=== PATIENT | female | born 1995 | race Caucasian/White ===

== ENCOUNTER → 2016-03-01 | Outpatient (CLI) | payer SELFPAY | LOC: MOB LAB 16:38 | PROVIDERS: ATTEND Family Medicine | DX: Z36 Encounter for antenatal screening of mother (principal); Z3A.37 37 weeks gestation of pregnancy | CPT/HCPCS: 87150 ==

== ENCOUNTER 2016-03-02 12:16 | Outpatient (CLI) | payer OTHER ==
[2016-03-02] MEDS ORDERED: NORMAL SALINE 10 ML SYRINGE FLUSH IVP PRN (12:31)
[2016-03-02 12:43] VITALS: RESP 18; TEMP 98.2
[2016-03-02 12:58] LABS: COCAINE SCREEN NEGATIVE (NEG); METHAMPHETAMINES SCREEN,URINE NEGATIVE (NEG); TRICYCLIC ANTIDEPRESSANT,URINE NEGATIVE (NEG); URINE SAMPLE TYPE VOIDED SPECIMEN; URINE SPECIFIC GRAVITY - MAN 1.018
[2016-03-02 12:59] LABS: CANNABINOID SCREEN,URINE POSITIVE (NEG)
--- NOTE | 2016-03-03 21:48 | PDOC(PROG) ---
Intake - - Reason for Visit/Chief Complaint: Other Additional Reason(s) for Visit: leaking of fluids Admitted From: Home - LMP: 06/05/15 Estimated Due Date: 03/22/16 Gestational Age in Weeks and Days: 37 Weeks and 2 Days : 3 Para: 0 Term Births: 1 Births: 0 Number of Abortions (Spont./Elective): 1 Living Children: 1 - Labs Blood Type and Rh: O+ Group B Strep: Unknown Hepatitis B Surface Antigen: Absent HIV: Negative Rubella Status: Immune VDRL/RPR: Absent Maternal - Vital Signs Last Taken Vital Signs: Vital Signs - Last Taken Temperature 98.2 F 03/02/16 12:45 Pulse Rate 99 03/02/16 12:45 Respiratory Rate 18 03/02/16 12:45 Blood Pressure 116/65 03/02/16 12:45 Pulse Ox 98 03/02/16 12:45 - Uterine Activity Uterine Contraction Monitor Mode: External Uterine Contraction Pattern: Absent - Vaginal Discharge Vaginal Bleeding Amount: None Vaginal Discharge Amount: Small Vaginal Discharge Description: Watery Monitoring - Uterine Activity Uterine Contraction Monitor Mode: External Uterine Contraction Pattern: Absent Results - Bedside Testing Bedside Urine Ketone: Large Bedside Urine Leukocytes Esterase: Moderate Bedside Urine Nitrite: Negative Bedside Urine Occult Blood: Negative Bedside Urine Protein: Negative Bedside Specific [place]: 1.015 Assessment and Plan - Patient Problems (1) Vaginal discharge Status: Acute
== END 2016-03-02 13:00 | disposition home or self-care (01) ==
LOC: OBOP 12:16
PROVIDERS: ATTEND Family Medicine
DX: O26.893 Other specified pregnancy related conditions, third trimester (principal); N89.8 Other specified noninflammatory disorders of vagina; O99.333 Smoking (tobacco) complicating pregnancy, third trimester; Z3A.37 37 weeks gestation of pregnancy
CPT/HCPCS: 81003; 82542; 84112; G0477

== ENCOUNTER → 2016-03-04 | Outpatient (CLI) | payer OTHER ==
--- NOTE | 2016-03-04 15:37 | DI ---
History: Third trimester . Evaluate for IUGR, oligohydramnios. Prior examination: Multiple prior. Most recent 02/12/16 Procedure: Study performed using a mid frequency transducer. Findings: There is no ultrasonographic evidence of oligohydramnios. CHANDAN is 11.4. Largest pocket left upper quadrant, 4.1 cm. heart rate is 132 beats per minute, synchronous. Placenta is attached along the fundal margin and posteriorly. Partial visualization shows no evidence of abruption. The [facility] and [place] are in fairly close agreement, varying between 36 weeks one week and 37 weeks 3 days with ultrasound dates at 36 weeks 4 days, 37 weeks 3 days by dates. EDC 03/22/16 by ultrasound. age parameters show good agreement femur length/abdominal circumference ratio of 23%, normal be tween 20 and 24%. The estimated weight is 2924 g, 31st percentile. Impression: Near-term at 36 weeks 4 days. No ultrasonographic evidence of intrauterine grow th retardation. The estimated weight indicates 31st percentile
== END ==
LOC: US 12:54
PROVIDERS: ATTEND Family Medicine
DX: O41.03X0 Oligohydramnios, third trimester, not applicable or unspecified (principal); O36.5930 Maternal care for other known or suspected poor fetal growth, third trimester, not applicable or unspecified; Z3A.37 37 weeks gestation of pregnancy
CPT/HCPCS: 76815

== ENCOUNTER 2016-03-15 05:30 | Inpatient (IN) | payer OTHER ==
[2016-03-15] MEDS ORDERED: NORMAL SALINE 10 ML SYRINGE FLUSH IVP PRN ×2 (05:43→06:52)
[2016-03-15] MEDS ORDERED: Metoclopramide Inj 10 MG/2 ML VIAL IV ONE (05:43)
[2016-03-15] MEDS ORDERED: Lactated Ringers 1,000 ML PRIMARY IV ONE (05:43)
[2016-03-15] MEDS ORDERED: LIDOCAINE W/ SODIUM BICARB 0.5 ML SYR SUBD PRN (05:43)
[2016-03-15] MEDS ORDERED: Famotidine Inj 20 MG in Normal Saline Flush 10 ML IVP ONE (05:43)
[2016-03-15] MEDS ORDERED: CITRIC ACID/SODIUM CITRATE 30 ML CUP PO ONE (05:43)
[2016-03-15] MEDS ORDERED: CefOXitin Inj 2 GM in Sodium Chloride 0.9% 100 ML IV ONE (05:43)
[2016-03-15] MEDS ORDERED: Oxytocin 20 Units + LR 1,000 ML IV SCH ×2 (05:45→09:52)
[2016-03-15] MEDS ORDERED: Lactated Ringers 1,000 ML PRIMARY IV SCH (05:45)
[2016-03-15 06:35] LABS: HEMATOCRIT 37.1 % (37.0-47.0); HEMOGLOBIN 12.7 g/dL (12.0-16.0); MEAN CORPUSCULAR HEMOGLOBIN 31.1 PG (27-31); MEAN CORPUSCULAR HGB CONC 34.2 g/dL (33-37); MEAN PLATELET VOLUME 10.1 FL (7.4-12.2); RDW COEFFICIENT OF VARIATION 13.8 % (11.5-14.5); RED BLOOD COUNT 4.08 10^6/uL (4.20-5.40); WHITE BLOOD COUNT 7.83 10^3/uL (4.8-10.8)
[2016-03-15 06:49] LABS: COCAINE SCREEN NEGATIVE (NEG); METHAMPHETAMINES SCREEN,URINE NEGATIVE (NEG); TRICYCLIC ANTIDEPRESSANT,URINE NEGATIVE (NEG); URINE SAMPLE TYPE VOIDED SPECIMEN
[2016-03-15 06:52] LABS: CANNABINOID SCREEN,URINE POSITIVE (NEG)
[2016-03-15] MEDS ORDERED: HYDROmorphone 2 MG/1 ML IVP PRN (06:52)
[2016-03-15] MEDS ORDERED: ATROPINE SULFATE 0.4 MG/1 ML VIAL IVP PRN (06:52)
[2016-03-15] MEDS ORDERED: ONDANSETRON 4 MG/2 ML VIAL IVP PRN ×2 (06:52→09:52)
[2016-03-15] MEDS ORDERED: Ondansetron ODT Tab 8 MG TAB PO PRN (06:52)
[2016-03-15] MEDS ORDERED: fentaNYL Inj 100 MCG/2 ML VIAL IVP PRN (06:52)
[2016-03-15] MEDS ORDERED: Sodium Chloride 0.9% 1,000 ML PRIMARY IV SCH (07:00)
[2016-03-15] MEDS ORDERED: BUPIVACAINE SPINAL 7.5 MG/1 ML - 2 ML IV ONE (07:06)
[2016-03-15] MEDS ORDERED: MORPHINE SULFATE/PF 10 MG/10 ML AMPULE ONE (07:07)
[2016-03-15] MEDS ORDERED: fentaNYL Inj 100 MCG/2 ML VIAL ONE (07:57)
[2016-03-15] MEDS ORDERED: Sodium Chloride 0.9% 250 ML IV ONE (07:57)
[2016-03-15] MEDS ORDERED: PHENYLEPHRINE 10,000 MCG/1 ML VIAL ONE (07:57)
[2016-03-15] MEDS ORDERED: Oxytocin 20 Units + LR 1,000 ML IV ONE (07:57)
[2016-03-15] MEDS ORDERED: ePHEDrine Inj 50 MG/ML AMP ONE (08:02)
[2016-03-15] MEDS ORDERED: Sodium Chloride 0.9% vial 10 ML ONE (08:03)
[2016-03-15] MEDS ORDERED: ONDANSETRON 4 MG/2 ML VIAL ONE (08:39)
[2016-03-15] MEDS ORDERED: Nalbuphine Inj 20 MG/ML Ampule IVP PRN (09:52)
[2016-03-15] MEDS ORDERED: D5-LR 1,000 ML PRIMARY IV SCH (09:52)
[2016-03-15] MEDS ORDERED: OXYTOCIN 10 UNIT/1 ML IM ONE (09:52)
[2016-03-15] MEDS ORDERED: MISOPROSTOL 200 MCG TABLET RECTAL ONE ×2 (09:52→21:40)
[2016-03-15] MEDS ORDERED: DIPH,PERTUSS,TET(ADACEL) VAC/PF 0.5 ML (Tdap) IM SCH (09:52)
[2016-03-15] MEDS ORDERED: CALCIUM CARBONATE 500 MG (TUMS) CHEWABLE TABLET PO PRN (09:52)
[2016-03-15] MEDS ORDERED: Famotidine Inj 20 MG in Normal Saline Flush 10 ML IVP PRN (09:52)
[2016-03-15] MEDS ORDERED: diphenhydrAMINE 50 MG/1 ML VIAL IV PRN (09:52)
[2016-03-15] MEDS ORDERED: METHYLERGONOVINE MALEATE 0.2 MG/1 ML VIAL IM PRN (09:52)
[2016-03-15] MEDS ORDERED: LANOLIN HPA 40 GM TUBE TOPICAL PRN (09:52)
[2016-03-15] MEDS ORDERED: Carboprost Inj 250 MCG/ML AMP IM PRN (09:52)
[2016-03-15] MEDS ORDERED: diphenhydrAMINE 25 MG CAPSULE PO PRN (09:52)
[2016-03-15] MEDS ORDERED: HYDROmorphone 2 MG/1 ML IV PRN (09:52)
[2016-03-15] MEDS ORDERED: Methylergonovine Tab 0.2 MG TAB PO PRN (09:52)
[2016-03-15] MEDS ORDERED: Naloxone Inj 0.01 MG, Sodium Chloride 0.9% vial 1 ML IVP PRN ×2 (09:52)
[2016-03-15] MEDS: KETOROLAC 30 MG/1 ML VIAL IVP PRN ×2 (10:31→16:34)
[2016-03-15] MEDS: oxyCODONE-ACETAMINOPHEN 5-325 TAB PO PRN ×3 (10:36→20:36)
--- NOTE | 2016-03-15 12:43 | OB.OP.NOTE ---
Operative Report Surgeon: Ariella Cartwright MD [employer] Supervisor: Jaylan Short MD Anesthesia Type: Regional Anesthesia Provider: Laurence Pavon CRNA Surgery Date: 03/15/16 Preoperative Diagnosis: Term IUP at 39 weeks. Previous x1 for cephalopelvic disproportion. Pt does not desire Postoperative Diagnosis: same, delivered Procedure: Repeat section Complications: none Estimated Blood Loss (mL): 450 Urine Output (mL): 110 Fluids: 2400 CC LR. 500 cc LR with 20 mU of pitocin added Indications: We do not offer vaginal after section trials at our facility and the patient did not desire this. She is requesting a repeat section. Findings: Viable female in cephalic presentation, slightly increased amniotic fluid level qualitatively. Pt also noted to have a very thin lower uterine segment. Description of Procedure: The patient was taken to the operating room where spinal anesthesia was found to be adequate. She was then prepared and draped in the normal sterile fashion in the dorsal supine position with a leftward tilt. A Pfannenstiel skin incision was then made with the scalpel and carried through to the underlying layer of fascia with Bovie. The fascia was incised in the midline and the incision extended laterally with the Bovie. The superior aspect of the fascial incision was then grasped with Juanita clamps, elevated and the underlying rectus muscles dissected off bluntly. Attention was then turned to the inferior aspect of this incision which, in a similar fashion, was grasped with Juanita clamps and the rectus muscles dissected off both bluntly and with the Bovie. The rectus muscle was then in the midline, and the peritoneum identified, tented up, and entered digitally. The peritoneal incision was then extended superiorly and inferiorly with good visualization of the bladder. The Jp retractor was then inserted and the vesicouterine peritoneum was identified. The lower uterine segment incised in a transverse fashion with the scalpel. The uterine incision was then extended laterally in a blunt fashion. The 's head was delivered atraumatically. The nose and mouth were suctioned with the bulb suction and the cord clamped and cut. The was handed off to the waiting nurse. Cord gases and cord blood were sent for analysis. The placenta was then removed manually; the uterus exteriorized, and cleared of all clots and debris. The uterine incision was repaired with 0 Vicryl in a running, locked fashion. A second layer of the same suture was used to obtain excellent hemostasis. The peritoneal cavity was then copiously irrigated with warm saline. The uterus was returned to the abdomen. The paracolic gutters were copiously irrigated with warm saline and a second look at the uterus incision continued to reveal excellent hemostasis. The peritoneum was closed with 3-0 Vicryl. The fascia reapproximated with 0 PDS in a running fashion. The subcutaneous space was irrigated with copiously with warm saline and the closed with 2 layers of 3-0 Vicryl and then more superficially with Insorb absorbable sutures. The skin was reapproximated with Steri-Strips and a Silverlon dressing applied. Fundal massage was completed with no clots in vaginal vault. The patient tolerated the procedure well. Sponge, lap, and needle counts were correct x2. Mefoxin was given preoperatively less than one hour prior to incision time. The patient was taken to the recovery room in stable condition.
[2016-03-15] MEDS ORDERED: AMOXICILLIN 500 MG CAPSULE PO SCH ×2 (15:00→21:00)
[2016-03-15] MEDS ORDERED: AMOXICILLIN 875 MG PO SCH (15:00)
[2016-03-15 15:28] LABS: HIV ANTIBODY NEGATIVE (N); HIV-1 P24 ANTIGEN NEGATIVE (N)
[2016-03-15] MEDS: NYSTATIN 15 GM POWDER TOPICAL SCH ×2 (15:42→20:36)
[2016-03-15] MEDS: NORMAL SALINE 10 ML SYRINGE FLUSH IVP PRN (16:34)
[2016-03-15] MEDS: AMOXICILLIN 875 MG PO SCH (20:36)
[2016-03-15] MEDS: Methylergonovine Tab 0.2 MG TAB PO SCH (21:02)
[2016-03-15] MEDS: Lactated Ringers 1,000 ML PRIMARY IV SCH (22:01)
[2016-03-16] MEDS: oxyCODONE-ACETAMINOPHEN 5-325 TAB PO PRN ×5 (00:18→17:26)
[2016-03-16] MEDS: Lactated Ringers 1,000 ML PRIMARY IV SCH ×2 (02:34→10:50)
[2016-03-16] MEDS: Methylergonovine Tab 0.2 MG TAB PO SCH ×3 (02:34→15:30)
[2016-03-16 06:53] LABS: MEAN CORPUSCULAR HEMOGLOBIN 30.8 PG (27-31); MEAN CORPUSCULAR HGB CONC 33.3 g/dL (33-37); MEAN PLATELET VOLUME 9.9 FL (7.4-12.2); RDW COEFFICIENT OF VARIATION 13.8 % (11.5-14.5); RED BLOOD COUNT 3.57 10^6/uL (4.20-5.40); WHITE BLOOD COUNT 7.64 10^3/uL (4.8-10.8)
[2016-03-16] MEDS: Senna/Docusate Tab 1 TAB TAB PO SCH ×2 (08:51→21:05)
[2016-03-16] MEDS: Prenatal Multivitamin Tab 1 TAB TAB PO SCH (08:51)
[2016-03-16] MEDS: AMOXICILLIN 875 MG PO SCH ×2 (08:53→21:05)
[2016-03-16] MEDS: NYSTATIN 15 GM POWDER TOPICAL SCH ×3 (08:53→21:05)
[2016-03-16] MEDS: NORMAL SALINE 10 ML SYRINGE FLUSH IVP PRN (08:54)
[2016-03-16] MEDS: KETOROLAC 30 MG/1 ML VIAL IVP PRN (08:54)
--- NOTE | 2016-03-16 13:56 | OB.PROGRES ---
Subjective Post Op Day: 1 Pain Management: PO [place] Catheter: No Flatus: No Diet: Regular [place] Feeding Method: Formula Feeding Ambulating: Yes Concerns / Additional Information: Feeling a little bit nauseated this morning after eating breakfast. States that pain is tolerable. DFS came and visited with the pt yesterday regarding her positive tox screen for marijuana. Objective - General General Appearance: POSITIVE: Cooperative, Mild Distress (currently nauseated after breakfast.) - Cardiovacular Cardiovascular Exam: POSITIVE: RRR, No Murmur Edema: +1 Pedal Edema Extremities: Negative Rene's - Bilaterally - Respiratory Respiratory Exam: POSITIVE: Clear to Auscultation - Bilaterally, Breathing Non Labored - Abdomen Bowel Sounds: Hypoactive Abdominal Wound Assessment: [place] Dressing Assesstment / Plan (1) Status post repeat low transverse section Current Visit: Yes Status: Acute Assessment / Plan: -routine cares. -bottle feeding. -rh positive. -rubella immune. -+ tox screen: being handled by DFS at this point. -d/c home in 1-2 days.
[2016-03-16] MEDS: FLUCONAZOLE 200 MG TABLET PO SCH (15:29)
[2016-03-16] MEDS: IBUPROFEN 800 MG TABLET PO PRN ×2 (15:30→21:05)
--- NOTE | 2016-03-16 15:40 | CRNA.PROGR ---
Anesthesia Note Anesthesia Progress Note: Laboratory Results 03/15/16 03/15/16 03/16/16 Range/Units 05:43 06:31 06:30 WBC 7.83 7.64 (4.8-10.8) 10^3/uL RBC 4.08 L 3.57 L (4.20-5.40) 10^6/uL Hgb 12.7 11.0 L (12.0-16.0) g/dL Hct 37.1 33.0 L (37.0-47.0) % MCV 90.9 92.4 (81-99) FL MCH 31.1 H 30.8 (27-31) PG MCHC 34.2 33.3 (33-37) g/dL RDW Std Deviation 44.4 45.1 (39-50) fL RDW Coeff of Zakia 13.8 13.8 (11.5-14.5) % Plt Count 229 181 (140-350) 10*3/uL MPV 10.1 9.9 (7.4-12.2) FL Ur Collection Type Voided specimen U Specif Grav (Refrac) 1.020 Urine Opiates Screen Negative (NEG) Ur Buprenorphine Negative (NEG) Ur Oxycodone Screen Negative (NEG) Urine Methadone Screen Negative (NEG) Ur Propoxyphene Screen Negative (NEG) Ur Barbiturates Screen Negative (NEG) U Tricyclic Antidepress Negative (NEG) Phencyclidine Screen Negative (NEG) Amphetamines Screen Negative (NEG) U Methamphetamines Scrn Negative (NEG) U Benzodiazepines Scrn Negative (NEG) Urine Cocaine Screen Negative (NEG) U Cannabinoids Screen Positive H (NEG) Hep Bs Antigen Pending Hepatitis C Ab Screen Pending HCV RNA Quant (PCR) Pending HIV 1&2 Antibody Rapid Negative (N) HIV P24 Antigen Negative (N) Blood Type O POSITIVE Antibody Screen Negative Did well. See above labs. No reports of headache or backache. Infant doing well.
[2016-03-16 21:11] VITALS: RESP 20
[2016-03-17] MEDS: oxyCODONE-ACETAMINOPHEN 5-325 TAB PO PRN ×2 (04:06→09:01)
[2016-03-17] MEDS: AMOXICILLIN 875 MG PO SCH (08:59)
[2016-03-17] MEDS: FLUCONAZOLE 200 MG TABLET PO SCH (09:00)
[2016-03-17] MEDS: Prenatal Multivitamin Tab 1 TAB TAB PO SCH (09:00)
[2016-03-17] MEDS: IBUPROFEN 800 MG TABLET PO PRN (09:00)
[2016-03-17] MEDS: Senna/Docusate Tab 1 TAB TAB PO SCH (09:02)
[2016-03-17] MEDS: NYSTATIN 15 GM POWDER TOPICAL SCH (09:05)
[2016-03-17 10:31] VITALS: TEMP 98.2
--- NOTE | 2016-03-18 22:24 | DCSUMMARY ---
Hospitalization Summary Admit Date: 03/15/16 Discharge Date: 03/17/16 Primary Diagnosis:: Previous section Primary Surgery and Date: Repeat on 03/15/16 Delivery Type: Hospital Course: Ms. Conrad was admitted for a repeat section at 39 weeks. Her only complication during was occasional marijuana use. Her tox screen on admission to the hospital was also positive. / Postop Complications: Pt had an uncomplicated surgery and post-operative course. Complications: None Exam - Vitals Vital Signs: Vital Signs Temperature 98.2 F Temperature Source Oral Pulse Rate [Apical] 90 Pulse Rate [Pulse Oximeter] 86 Pulse Rate 75 Respiratory Rate 20 Blood Pressure [Left Arm] 119/86 Blood Pressure 133/65 Pulse Ox 95 Oxygen Delivery Method Room Air Height 5 ft 4 in Weight 223 lb 0.6 oz - General General Appearance: POSITIVE: No Acute Distress, Cooperative - Respiratory Respiratory Exam: POSITIVE: Clear to Auscultation - Bilaterally, Breathing Non Labored - Cardiovascular Cardiovascular Exam: POSITIVE: RRR, No Murmur - GI/Abdominal GI/Abdominal Exam: POSITIVE: Normal Bowel Sounds, Non Tender, Non Distended, Soft - Extremities Extremities Exam: POSITIVE: Normal Capillary Refill, Negative Rene's sign, +1 Edema (bilateral ankles) - Neurological Neurological Exam: POSITIVE: Alert, Oriented x 3 - Psychiatric Psychiatric Exam: POSITIVE: Normal Affect, Normal Mood - Integumentary Integumentary Exam: POSITIVE: Normal Color, Warm, Dry Patient Problems - Patient Problem List (1) Status post repeat low transverse section Status: Acute
[2016-03-18 23:46] LABS: HCV AB SCREEN Negative (Negative); HEPATITIS B SURFACE AG Negative (Negative)
== END 2016-03-17 10:50 | disposition home or self-care (01) | DRG 766 ==
LOC: OBOR 05:30 → OBIP 09:35
PROVIDERS: ADMIT Family Medicine; ATTEND Family Medicine
PROC: 10D00Z1 Extraction of Products of Conception, Low, Open Approach (ICD-10-PCS; principal; 2016-03-15 08:00)
DX: O34.211 Maternal care for low transverse scar from previous cesarean delivery (principal); N85.8 Other specified noninflammatory disorders of uterus; Z3A.39 39 weeks gestation of pregnancy; Z37.0 Single live birth
CPT/HCPCS: 36415; 80305; 81003; 82542; 85027; 86703; 86850; 86900; 86901; 94150; 94761; A4216; J1885; J2370; J2405; J2765; J3010; J7050; J7120

== ENCOUNTER → 2016-03-24 | Outpatient (CLI) | payer OTHER ==
[2016-03-24 16:27] LABS: BILIRUBIN,URINE NEGATIVE (NEG); CLARITY,URINE CLEAR (CLEAR); GLUCOSE, URINE (UA) NEGATIVE (NEG); LEUKOCYTE ESTERASE ,URINE LARGE (NEG); NITRATE,URINE NEGATIVE (NEG); OCCULT BLOOD,URINE LARGE (NEG); PROTEIN,URINE TRACE mg/dl (NEG); UROBILINOGEN,URINE 0.2 mg/dL (0.2)
[2016-03-24 16:36] LABS: BACTERIA,URINE MANY; RBC,URINE 25-50 /hpf; SQUAMOUS EPITHELIAL CELL,UR RARE; URINE SAMPLE TYPE VOIDED SPECIMEN; WBC,URINE 25-50
== END ==
LOC: MOB LAB 16:05
PROVIDERS: ATTEND Nurse Practitioner Family
DX: O86.0 Infection of obstetric surgical wound (principal); R30.0 Dysuria
CPT/HCPCS: 81001; 87070; 87077; 87088; 87186; 87205